=== PATIENT | male | born 2000 | race Hispanic/Latino ===

== ENCOUNTER 2022-06-01 19:26 | Emergency (ER) | payer SELFPAY ==
[2022-06-01] MEDS ORDERED: Sodium Chloride 0.9% 1000 ML 1,000 ML IV STA (19:51)
[2022-06-01] MEDS ORDERED: MORPHINE SULFATE 4 MG INJ IV ONE (19:51)
[2022-06-01] MEDS ORDERED: Zofran 4 MG/2 ML VIAL IV ONE (19:51)
[2022-06-01] MEDS ORDERED: Zofran 4 MG/2 ML VIAL ONE (19:56)
[2022-06-01] MEDS ORDERED: MORPHINE SULFATE 4 MG INJ ONE (19:57)
[2022-06-01] MEDS ORDERED: Sodium Chloride 0.9% 1000 ML 1,000 ML ONE (19:57)
[2022-06-01 20:18] LABS: Basophil (Absolute #) 0.05 x10^3/uL (0-0.4); Eosinophil % 1.2 % (0.00-5.0); Eosinophil (Absolute #) 0.11 x10^3/uL (0-0.5); Hematocrit 46.5 % (42-50); Hemoglobin 15.7 g/dL (12.5-18.0); Lymphocyte (Absolute #) 3.48 x10^3/uL (1.0-4.6); Lymphocytes % 39.2 % (24.0-44.0); Mean Corpuscular Hemoglobin 31.4 pg (26-32); Mean Corpuscular Hgb Concent. 33.8 g/dL (32-36); Mean Platelet Volume 10.3 fL (7.5-11.0); Monocytes % 7.9 % (0.0-12.0); Neutrophil % 50.6 % (36.0-66.0); Platelet Count 229 x10^3/uL (150-450); White Blood Count 8.9 x10^3/uL (4.0-10.5)
[2022-06-01 20:35] LABS: ALKALINE PHOSPHATASE 95 U/L (38-126); BLOOD UREA NITROGEN 15 mg/dL (9-20); CHLORIDE 99 mmol/L (98-107); Calcium 9.7 mg/dL (8.4-10.2); Carbon Dioxide 24 mmol/L (22-30); Creatinine 1 0.74 mg/dL (0.66-1.25); EST GLOMERULAR FILTRATION RATE > 60.0 ML/MIN; Glucose 105 mg/dL (74-106); LIPASE 101 U/L (23-300); Potassium 4.1 mmol/L (3.5-5.1); SGOT/AST 51 U/L (17-59); SGPT/ALT 59 U/L (0-50); SODIUM 137 mmol/L (137-145); Total Protein 8.3 g/dL (6.3-8.2)
--- NOTE | 2022-06-01 20:40 | ERPHSYRPT ---
- History of Present Illness Time Seen by Provider: 06/01/22 19:52 Historian: patient Exam Limitations: language barrier Patient Subjective Stated Complaint: pt arrived today complaining of abdominal pain. states he is having diarrhea several times a day. since yesterday evening. states he is noticing light blood in each BM. Triage Nursing Assessment: pt is holding abdomen stating he has a pain in the right side of abdomen that is sharp and he rates pain as 6/10 Physician History: 21 years old Pashto male presented to ER with chief complaint of generalized abdominal pain moderate intensity, cramping in nature with associated nausea vomiting and loose stool off and on since yesterday. Later on he started notice d some bright red blood with each bowel movement. Patient report diarrhea resolved now but still have some blood. Pain is more on the left side and more with oral intake and bowel movement. No fever or chills reported. No sick contact. No history of constipation or hemorrhoids. Timing/Duration: yesterday, constant, gradual onset, worse Activities at Onset: rest Quality: cramping Abdominal Pain Onset Location: generalized abdomen Pain Radiation: no radiation Severity of Pain-Max: moderate Severity of Pain-Current: moderate Modifying Factors: Worsens With: defecating Associated Symptoms: nausea, vomiting, No headache, No shortness of breath Previous symptoms: no prior history Allergies/Adverse Reactions: No Known Drug Allergies Allergy (Unverified 06/01/22 19:42) Hx Tetanus, Diphtheria Vaccination/Date Given: No Hx Influenza Vaccination/Date Given: No Hx Pneumococcal Vaccination/Date Given: No Immunizations Up to Date: No Travel Risk - International Travel Have you traveled outside of the country in past 3 weeks: No - Coronavirus Screening Are you exhibiting any of the following symptoms?: No Close contact with a COVID-19 positive Pt in past 14-21 Days: No - Vaccine Status Have you recieved a Covid-19 vaccination: No - Review of Systems Constitutional: No Symptoms Eyes: No Symptoms Ears, Nose, & Throat: No Symptoms Respiratory: No Symptoms Cardiac: No Symptoms Abdominal/Gastrointestinal: Abdominal Pain, Nausea, Vomiting, Diarrhea Genitourinary Symptoms: No Symptoms Musculoskeletal: No Symptoms Skin: No Symptoms Neurological: No Symptoms Psychological: No Symptoms Endocrine: No Symptoms Hematologic/Lymphatic: No Symptoms Immunological/Allergic: No Symptoms - Past Medical History Pertinent Past Medical History: No - Past Surgical History Past Surgical History: No - Social History Smoking Status: Never smoker Exposure to second hand smoke: No Drug Use: none - Nursing Vital Signs Nursing Vital Signs: Initial Vital Signs Temperature 98.7 F 06/01/22 19:30 Pulse Rate 87 06/01/22 19:30 Respiratory Rate 18 06/01/22 19:30 Blood Pressure 151/81 06/01/22 19:30 O2 Sat by Pulse Oximetry 100 06/01/22 19:30 Pain Scale Pain Intensity 2 - Physical Exam General Appearance: no apparent distress, alert Eye Exam: PERRL/EOMI, EOM palsy/anisocoria Ears, Nose, Throat Exam: pharynx normal Neck Exam: normal inspection, non-tender, supple, full range of motion Respiratory Exam: normal breath sounds, lungs clear Cardiovascular Exam: regular rate/rhythm, normal heart sounds Gastrointestinal/Abdomen Exam: soft, normal bowel sounds, tenderness (Mild generalized without guarding or rebound) Back Exam: normal inspection, normal range of motion Extremity Exam: normal inspection, normal range of motion Neurologic Exam: alert, oriented x 3, cooperative Skin Exam: normal color SpO2 Interpretation: normal SpO2: 100 O2 Delivery: Room Air Ordered Tests: Active Orders 24 hr Category Date Time Status IV Insertion STAT Care 06/01/22 19:51 Active NPO (ED) STAT Care 06/01/22 19:51 Active ABDOMEN AND PELVIS W/0 CONTRAS [CT] Stat Exams 06/01/22 19:52 Taken CBC W DIFF Stat Lab 06/01/22 20:16 Completed CMP Stat Lab 06/01/22 20:16 Completed LIPASE Stat Lab 06/01/22 20:16 Completed Lactic Acid Stat Lab 06/01/22 20:00 Completed UA W/RFX CULTURE Stat Lab 06/01/22 20:37 Completed Medication Summary Discontinued Medications Generic Name Dose Route Start Last Admin Trade Name Freq PRN Reason Stop Dose Admin Sodium Chloride 1,000 mls @ 999 mls/hr 06/01/22 19:51 06/01/22 20:59 Sodium Chloride 0.9% 1000 Ml IV 06/01/22 20:51 Infused .Q1H1M STA Infusion Sodium Chloride Confirm 06/01/22 19:57 Sodium Chloride 0.9% 1000 Ml Administered 06/01/22 19:58 Dose 1,000 mls @ ud .ROUTE .STK-MED ONE Morphine Sulfate 4 mg 06/01/22 19:51 06/01/22 19:58 Morphine Sulfate 4 Mg/Ml Injection IV 06/01/22 19:52 4 mg STAT ONE Administration Morphine Sulfate Confirm 06/01/22 19:57 Morphine Sulfate 4 Mg/Ml Injection Administered 06/01/22 19:58 Dose 4 mg .ROUTE .STK-MED ONE Ondansetron HCl 4 mg 06/01/22 19:51 06/01/22 19:58 Ondansetron Hcl 4 Mg/2 Ml Vial IV 06/01/22 19:52 4 mg STAT ONE Administration Ondansetron HCl Confirm 06/01/22 19:56 Ondansetron Hcl 4 Mg/2 Ml Vial Administered 06/01/22 19:57 Dose 4 mg .ROUTE .STK-MED ONE Lab/Rad Data: Laboratory Result Diagrams 06/01/22 20:16 06/01/22 20:16 Laboratory Results 06/01/22 06/01/22 06/01/22 Range/Units 21:07 20:37 20:16 WBC (4.0-10.5) x10^3/uL RBC (4.1-5.6) x10^6/uL Hgb (12.5-18.0) g/dL Hct (42-50) % MCV (78-100) fL MCH (26-32) pg MCHC (32-36) g/dL RDW (11.5-14.0) % Plt Count (150-450) x10^3/uL MPV (7.5-11.0) fL Gran % (36.0-66.0) % Immature Gran % (Auto) (0.00-0.4) % Nucleat RBC Rel Count (0.00-0.1) % Eos # (Auto) (0-0.5) x10^3/uL Immature Gran # (Auto) (0.00-0.03) x10^3u/L Absolute Lymphs (auto) (1.0-4.6) x10^3/uL Absolute Monos (auto) (0.0-1.3) x10^3/uL Absolute Nucleated RBC (0.00-0.01) x10^3u/L Lymphocytes % (24.0-44.0) % Monocytes % (0.0-12.0) % Eosinophils % (0.00-5.0) % Basophils % (0.0-0.4) % Absolute Granulocytes (1.4-6.9) x10^3/uL Basophils # (0-0.4) x10^3/uL Sodium 137 (137-145) mmol/L Potassium 4.1 (3.5-5.1) mmol/L Chloride 99 (98-107) mmol/L Carbon Dioxide 24 (22-30) mmol/L Anion Gap 17.0 H (5-15) MEQ/L BUN 15 (9-20) mg/dL Creatinine 0.74 (0.66-1.25) mg/dL Estimated GFR > 60.0 ML/MIN Glucose 105 (74-106) mg/dL Lactic Acid (0.4-2.0) Calcium 9.7 (8.4-10.2) mg/dL Total Bilirubin 1.90 H (0.2-1.3) mg/dL AST 51 (17-59) U/L ALT 59 H (0-50) U/L Alkaline Phosphatase 95 (38-126) U/L Serum Total Protein 8.3 H (6.3-8.2) g/dL Albumin 5.0 (3.5-5.0) g/dL Lipase 101 (23-300) U/L Urinalys Dipstick Clnc MAIN LAB Urine Color YELLOW (YELLOW) Urine Appearance CLEAR (CLEAR) Urine pH 6.0 (5-6) Ur Specific [place] 1.020 (1.005-1.025) POC Urine Protein Conf NEGATIVE (Negative) Urine Ketones NEGATIVE (NEGATIVE) Urine Nitrite NEGATIVE (NEGATIVE) Urine Bilirubin NEGATIVE (NEGATIVE) Urine Urobilinogen 1 (0-1) mg/dL Urine Leukocytes NEGATIVE (NEGATIVE) Urine WBC (Auto) NONE (0-5) /HPF Urine RBC (Auto) NONE (0-2) /HPF U Epithel Cells (Auto) NONE (FEW) /HPF Urine Bacteria (Auto) NONE (NEGATIVE) /HPF Urine RBC NEGATIVE (0-5) Justen/ul Fatty Casts ' (NEGATIVE) /LPF Urine Mucus (Auto) SLIGHT (NEGATIVE) /HPF Ur Culture Indicated? NO Urine Glucose NEGATIVE (NEGATIVE) mg/dL Influenza Type A Ag NEGATIVE (NEGATIVE) Influenza Type B Ag NEGATIVE (NEGATIVE) RSV (PCR) NEGATIVE (Negative) SARS-CoV-2 (PCR) NEGATIVE (NEGATIVE) 06/01/22 06/01/22 Range/Units 20:16 20:00 WBC 8.9 (4.0-10.5) x10^3/uL RBC 5.00 (4.1-5.6) x10^6/uL Hgb 15.7 (12.5-18.0) g/dL Hct 46.5 (42-50) % MCV 93.0 (78-100) fL MCH 31.4 (26-32) pg MCHC 33.8 (32-36) g/dL RDW 12.0 (11.5-14.0) % Plt Count 229 (150-450) x10^3/uL MPV 10.3 (7.5-11.0) fL Gran % 50.6 (36.0-66.0) % Immature Gran % (Auto) 0.5 H (0.00-0.4) % Nucleat RBC Rel Count 0.0 (0.00-0.1) % Eos # (Auto) 0.11 (0-0.5) x10^3/uL Immature Gran # (Auto) 0.04 H (0.00-0.03) x10^3u/L Absolute Lymphs (auto) 3.48 (1.0-4.6) x10^3/uL Absolute Monos (auto) 0.70 (0.0-1.3) x10^3/uL Absolute Nucleated RBC 0.00 (0.00-0.01) x10^3u/L Lymphocytes % 39.2 (24.0-44.0) % Monocytes % 7.9 (0.0-12.0) % Eosinophils % 1.2 (0.00-5.0) % Basophils % 0.6 (0.0-0.4) % Absolute Granulocytes 4.50 (1.4-6.9) x10^3/uL Basophils # 0.05 (0-0.4) x10^3/uL Sodium (137-145) mmol/L Potassium (3.5-5.1) mmol/L Chloride (98-107) mmol/L Carbon Dioxide (22-30) mmol/L Anion Gap (5-15) MEQ/L BUN (9-20) mg/dL Creatinine (0.66-1.25) mg/dL Estimated GFR ML/MIN Glucose (74-106) mg/dL Lactic Acid 0.9 (0.4-2.0) Calcium (8.4-10.2) mg/dL Total Bilirubin (0.2-1.3) mg/dL AST (17-59) U/L ALT (0-50) U/L Alkaline Phosphatase (38-126) U/L Serum Total Protein (6.3-8.2) g/dL Albumin (3.5-5.0) g/dL Lipase (23-300) U/L Urinalys Dipstick Clnc Urine Color (YELLOW) Urine Appearance (CLEAR) Urine pH (5-6) Ur Specific [place] (1.005-1.025) POC Urine Protein Conf (Negative) Urine Ketones (NEGATIVE) Urine Nitrite (NEGATIVE) Urine Bilirubin (NEGATIVE) Urine Urobilinogen (0-1) mg/dL Urine Leukocytes (NEGATIVE) Urine WBC (Auto) (0-5) /HPF Urine RBC (Auto) (0-2) /HPF U Epithel Cells (Auto) (FEW) /HPF Urine Bacteria (Auto) (NEGATIVE) /HPF Urine RBC (0-5) Justen/ul Fatty Casts (NEGATIVE) /LPF Urine Mucus (Auto) (NEGATIVE) /HPF Ur Culture Indicated? Urine Glucose (NEGATIVE) mg/dL Influenza Type A Ag (NEGATIVE) Influenza Type B Ag (NEGATIVE) RSV (PCR) (Negative) SARS-CoV-2 (PCR) (NEGATIVE) - Progress Progress: improved Progress Note: 06/01/22 22:06 21 years old is evaluated for abdominal pain with loose stool and hematochezia. Patient is given symptomatic treatment, on reevaluation feeling better. Has normal white count, stable H&H. Chemistries showed elevated liver enzymes and a total bili of 1.9. CT abdomen pelvis negative for any acute findings. I have obtained COVID-19 which is negative as well. He could have gastroenteritis with some bleeding intermittently. Recommended supportive care and outpatient follow-up. Discussed signs symptoms of worsening needing return to ER which patient seems understanding. - Departure Departure Disposition: Home Clinical Impression: Gastroenteritis Condition: Stable Critical Care Time: No Referrals: DOCTOR,NO FAMILY [Primary Care Provider] - Follow up/PCP as directed JESSICA MARTÍNEZ [ACTIVE STAFF] - Follow up/PCP as directed (1-2 days for reevaluation. Call for appointment tomorrow morning) Instructions: Severe Abdominal Pain, Adult (DC) Additional Instructions: Plenty of fluids. Take Tylenol as needed for pain. Follow-up with primary care for reevaluation. Return to ER for worsening abdominal pain or if having increased blood in the stool, fever chills, worsening of diarrhea etc.
[2022-06-01 20:55] LABS: Appearance CLEAR (CLEAR); Bilirubin NEGATIVE (NEGATIVE); Glucose NEGATIVE (NEGATIVE); Ketones NEGATIVE (NEGATIVE); Mucus SLIGHT /HPF (NEGATIVE)
[2022-06-01 20:56] LABS: Dipstick done @ ? MAIN LAB; Nitrite NEGATIVE (NEGATIVE); Protein,Urine Dip NEGATIVE (Negative); RBC NEGATIVE Ery/ul (0-5); Urobilinogen 1 mg/dL (0-1)
[2022-06-01 20:57] LABS: Urine Cultured Indicated? NO
[2022-06-01 21:45] LABS: INFLUENZA A NEGATIVE (NEGATIVE); INFLUENZA B NEGATIVE (NEGATIVE); RESPIRATORY SYNCTIAL VIRUS NEGATIVE (Negative); SARS-CoV-2 Xpert Express NEGATIVE (NEGATIVE)
[2022-06-01 22:09] VITALS: O2SAT 100
[2022-06-01 22:14] VITALS: BP 132/64; PULSE 83
--- NOTE | 2022-06-02 08:59 | XRAY ---
Indication: Abdomen pain. Hematochezia. Multiple contiguous axial images obtained through the abdomen and pelvis without contrast. Comparison: None Study is slightly degraded by respiration artifact throughout. Lung bases demonstrates tiny left infrahilar calcified granuloma. No infiltrate or effusion. Heart is not enlarged. Noncontrasted stomach and bowel loops appear nonobstructed with normal air-filled appendix. No free fluid/air. Remaining liver, gallbladder, pancreas, spleen, adrenal glands, kidneys, ureters, bladder, and aorta appear unremarkable for noncontrast exam. Osseous structures intact. No ventral or inguinal hernias. Impression: Minimal respiration artifact. Grossly negative CT abdomen/pelvis without contrast exam. Comment: Preliminary interpretation made by [facility]. No critical discrepancy.
== END 2022-06-01 22:20 | disposition home or self-care (01) ==
LOC: ED 19:26
DX: K52.9 Noninfective gastroenteritis and colitis, unspecified (principal); R10.84 Generalized abdominal pain; R11.2 Nausea with vomiting, unspecified; K92.1 Melena; Z28.310 Unvaccinated for COVID-19
CPT/HCPCS: 0241U; 36000; 36415; 74176; 80053; 81015; 83605; 83690; 85025; 96374; 96375; 99284; J2270; J2405